=== PATIENT | female | born 1990 | race Caucasian/White ===

== ENCOUNTER 2017-05-28 21:45 | Emergency (ER) | payer MEDICAID ==
[~2017-05-28] VITALS: Ht 167.6 cm; Wt 64.0 kg
[2017-05-29 02:01] VITALS: BP 110/66
== END 2017-05-29 02:15 | disposition home or self-care (01) ==
LOC: ER 21:45
DX: J10.1 Influenza due to other identified influenza virus with other respiratory manifestations (principal)
CPT/HCPCS: 87804; 99284

== ENCOUNTER 2018-02-07 13:16 | Emergency (ER) | payer MEDICAID ==
[~2018-02-07] VITALS: Ht 167.6 cm; Wt 65.0 kg
[2018-02-07 14:23] VITALS: BP_SYST 51
== END 2018-02-07 16:07 | disposition left against medical advice (07) ==
LOC: ER 13:16
DX: Z53.21 Procedure and treatment not carried out due to patient leaving prior to being seen by health care provider (principal)

== ENCOUNTER 2018-05-07 21:30 | Emergency (ER) | payer MEDICAID ==
[~2018-05-07] VITALS: Ht 167.6 cm; Wt 64.0 kg
[2018-05-07 21:35] VITALS: BP 117/62
== END 2018-05-08 03:06 | disposition home or self-care (01) ==
LOC: ER 23:32
DX: Z53.21 Procedure and treatment not carried out due to patient leaving prior to being seen by health care provider (principal)
CPT/HCPCS: 93005

== ENCOUNTER 2018-09-03 15:21 | Emergency (ER) | payer MEDICAID ==
[~2018-09-03] VITALS: Ht 167.6 cm; Wt 65.0 kg
[2018-09-03 16:14] VITALS: BP 99/65
== END 2018-09-03 19:08 | disposition home or self-care (01) ==
LOC: ER 15:21
DX: J84.10 Pulmonary fibrosis, unspecified (principal); R05 Cough
CPT/HCPCS: 71045; 99283

== ENCOUNTER 2020-09-05 13:32 | Emergency (ER) | payer SELFPAY ==
[~2020-09-05] VITALS: Ht 167.6 cm; Wt 64.0 kg
[2020-09-05 13:41] VITALS: BP 88/53
== END 2020-09-05 17:08 | disposition left against medical advice (07) ==
LOC: ER 13:32
DX: R05 Cough (principal); Z53.21 Procedure and treatment not carried out due to patient leaving prior to being seen by health care provider

== ENCOUNTER 2020-09-14 20:56 | Emergency (ER) | payer MEDICAID ==
[~2020-09-14] VITALS: Ht 167.6 cm; Wt 66.0 kg
[2020-09-14 22:09] LABS: BASOPHILS % 0.5 % (0.0-2.0); EOSINOPHILS % 2.1 % (0.0-5.0); HEMATOCRIT. 40.1 % (36.0-48.0); HEMOGLOBIN. 13.8 g/dL (12.0-16.0); LYMPHOCYTES % 25.4 % (20.0-50.0); MEAN CORPUSCULAR HEMOGLOBIN 31.2 pg (28.0-32.0); MEAN CORPUSCULAR VOLUME 90.9 fL (81.0-99.0); MEAN PLATELET VOLUME 7.9 fl (7.4-10.4); MONOCYTES % 4.9 % (2.0-8.0); NEUTROPHILS % 67.1 % (40.0-76.0); PLATELET 200 x1000/uL (130-400); RED BLOOD CELL COUNT 4.41 mill/uL (4.2-5.4); RED CELL DISTRIBUTION WIDTH 13.6 % (11.6-14.6)
[2020-09-14 22:16] LABS: CHLORIDE 105 mEq/L (98-107)
[2020-09-14 22:20] LABS: CLARITY URINE CLEAR (CLEAR); COLOR URINE YELLOW (YELLOW); KETONES URINE NEGATIVE (NEGATIVE); LEUKOCYTE ESTERASE URINE NEGATIVE (NEGATIVE); NITRITE URINE NEGATIVE (NEGATIVE); OCCULT BLOOD URINE 3+ (NEGATIVE); PROTEIN URINE NEGATIVE (NEGATIVE); SPECIFIC GRAVITY URINE 1.014 (1.005-1.030); UROBILINOGEN URINE 0.2 E.U./dL (0.2-1.0)
[2020-09-14 22:24] LABS: HCG SCREEN NEGATIVE
[2020-09-14] MEDS ORDERED: SODIUM CHLORIDE 0.9% 1,000 ML IV ONE (22:30)
[2020-09-15] MEDS ORDERED: IBUP-2029 MT (00:33)
[2020-09-15 00:42] VITALS: BP 111/54
== END 2020-09-15 00:56 | disposition home or self-care (01) ==
LOC: ER 20:56
DX: R10.2 Pelvic and perineal pain (principal); N83.201 Unspecified ovarian cyst, right side; F41.9 Anxiety disorder, unspecified; Z97.5 Presence of (intrauterine) contraceptive device
CPT/HCPCS: 36415; 76830; 76856; 80053; 81003; 81025; 84703; 85025; 93005; 99285

== ENCOUNTER 2020-10-12 15:00 | Emergency (ER) | payer MEDICAID ==
[~2020-10-12] VITALS: Ht 165.1 cm; Wt 72.0 kg
[~2020-10-12 15:00] MED LIST: IBUP-2029 MT
[2020-10-12 16:49] LABS: BASOPHILS % 0.7 % (0.0-2.0); EOSINOPHILS % 1.5 % (0.0-5.0); HEMATOCRIT. 36.2 % (36.0-48.0); HEMOGLOBIN. 12.5 g/dL (12.0-16.0); LYMPHOCYTES % 23.5 % (20.0-50.0); MEAN CORPUSCULAR HEMOGLOBIN 32.1 pg (28.0-32.0); MEAN CORPUSCULAR VOLUME 92.6 fL (81.0-99.0); MONOCYTES % 6.8 % (2.0-8.0); NEUTROPHILS % 67.5 % (40.0-76.0); PLATELET 181 x1000/uL (130-400); RED BLOOD CELL COUNT 3.91 mill/uL (4.2-5.4); RED CELL DISTRIBUTION WIDTH 13.7 % (11.6-14.6)
[2020-10-12 16:55] LABS: CHLORIDE 108 mEq/L (98-107)
[2020-10-12 17:01] LABS: HCG SCREEN NEGATIVE
[2020-10-12 18:14] VITALS: BP 99/60
== END 2020-10-12 18:16 | disposition home or self-care (01) ==
LOC: ER 15:00
DX: R42 Dizziness and giddiness (principal)
CPT/HCPCS: 36415; 80053; 81025; 84703; 85025; 93005; 99284

== ENCOUNTER 2020-10-16 17:48 | Emergency (ER) | payer MEDICAID ==
[~2020-10-16] VITALS: Ht 170.2 cm; Wt 59.0 kg
[2020-10-16 17:49] VITALS: BP 110/60
[2020-10-16 19:41] LABS: BASOPHILS % 0.6 % (0.0-2.0); EOSINOPHILS % 0.9 % (0.0-5.0); HEMATOCRIT. 41.3 % (36.0-48.0); HEMOGLOBIN. 14.5 g/dL (12.0-16.0); LYMPHOCYTES % 19.7 % (20.0-50.0); MEAN CORPUSCULAR HEMOGLOBIN 31.8 pg (28.0-32.0); MEAN CORPUSCULAR VOLUME 90.8 fL (81.0-99.0); MEAN PLATELET VOLUME 8.2 fl (7.4-10.4); MONOCYTES % 4.4 % (2.0-8.0); NEUTROPHILS % 74.4 % (40.0-76.0); PLATELET 230 x1000/uL (130-400); RED BLOOD CELL COUNT 4.54 mill/uL (4.2-5.4); RED CELL DISTRIBUTION WIDTH 13.6 % (11.6-14.6)
[2020-10-16 19:48] LABS: CHLORIDE 106 mEq/L (98-107)
== END 2020-10-16 21:05 | disposition home or self-care (01) ==
LOC: ER 17:48
DX: R53.1 Weakness (principal); R06.02 Shortness of breath; F41.9 Anxiety disorder, unspecified
CPT/HCPCS: 36415; 71045; 80053; 84443; 85025; 93005; 99285